=== PATIENT | female | born 1980 | race Caucasian/White ===

== ENCOUNTER 2016-12-15 16:07 | Emergency (ER) | payer OTHER ==
[2016-12-15] MEDS ORDERED: KETOROLAC 60 MG/2 ML VIAL IVP STA (16:47)
[2016-12-15] MEDS ORDERED: DEXAMETHASONE 10 MG/ML VIAL IVP STA (16:47)
[2016-12-15] MEDS ORDERED: diphenhydrAMINE INJ 50 MG/ML VIAL IVP STA (16:47)
[2016-12-15] MEDS ORDERED: PROCHLORPERAZINE 10 MG/2 ML VIAL IVP STA (16:47)
[2016-12-15] MEDS ORDERED: SODIUM CHLORIDE 0.9% 1,000 ML IV ONE ×2 (16:47→16:51)
--- NOTE | 2016-12-15 16:49 | ED Physician Documentation ---
PD HPI HEADACHE - Stated complaint Stated Complaint: MIGRAINE COCHRAN/VISION - Chief complaint Chief Complaint: Neuro - History obtained from History obtained from: Patient - History of Present Illness Timing - onset: Other (36-year-old woman with occasional migraines, she is usually able to manage them at home with Excedrin, but she's had a gradual onset global headache that is throbbing for 2 days associated with nausea but no vomiting, some blurry vision, and photophobia/photophobia. It has not responded to Excedrin. There is no associated fever or neck stiffness.) Review of Systems Constitutional: denies: Fever, Chills Respiratory: denies: Cough GI: reports: Nausea. 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 - Present Medications Home Medications: Ambulatory Orders Medication Instructions Recorded Confirmed Cholestyramine (with Sugar) 0 mg DAILY 12/15/16 12/15/16 [Cholestyramine Packet] Dicyclomine [Bentyl] 1.5 tab DAILY 12/15/16 12/15/16 Prochlorperazine Maleate 10 mg PO Q8HR PRN #20 tablet 12/15/16 [Compazine] - Allergies Allergies/Adverse Reactions: Allergies Allergy/AdvReac Type Severity Reaction Status Date / Time morphine Allergy Severe Respiratory Verified 12/15/16 16:17 sumatriptan [From Imitrex] Allergy Intermediate Edema Verified 12/15/16 16:17 sumatriptan succinate * Allergy Intermediate Edema Verified 12/15/16 16:17 [From Imitrex] - Social History Does the pt smoke?: Yes Smoking Status: Current every day smoker Does the pt drink ETOH?: Yes Does the pt have substance abuse?: No - Immunizations Immunizations are current?: Yes Immunizations: TDAP >10years/unknown PD ED PE NORMAL - Vitals Vital signs reviewed: Yes - General General: Alert and oriented X 3, No acute distress - HEENT HEENT: PERRL, EOMI - Neck Neck: Supple, no meningeal sign, No bony TTP - Neuro Neuro: Alert and oriented X 3, 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 As such I doubt subarachnoid hemorrhage. There are no infectious symptoms such as fever or stiff neck to make me suspect meningitis. No carbon monoxide exposure. On recheck after IV fluids Compazine, Toradol, Benadryl, dexamethasone her headache was resolved. Departure - Departure Disposition: 01 Home, Self Care Clinical Impression: Migraine Condition: Good Record reviewed to determine appropriate education?: Yes Instructions: ED Headache Migraine Prescriptions: Prochlorperazine Maleate [Compazine] 10 mg PO Q8HR PRN #20 tablet PRN Reason: Headache Comments: Call your doctor to arrange a follow up appointment. Make the next available appointment. In the interim return anytime if worse or if new symptoms develop. Forms: Activity restrictions
[2016-12-15] MEDS ORDERED: DEXAMETHASONE 10 MG/ML VIAL ONE (16:51)
[2016-12-15] MEDS ORDERED: diphenhydrAMINE INJ 50 MG/ML VIAL ONE (16:51)
[2016-12-15] MEDS ORDERED: KETOROLAC 30 MG/ML VIAL ONE ×2 (16:51→16:56)
[2016-12-15] MEDS ORDERED: PROCHLORPERAZINE 10 MG/2 ML VIAL ONE (16:51)
[2016-12-15 17:51] VITALS: BP 100/61
== END 2016-12-15 17:51 | disposition home or self-care (01) ==
LOC: ED 16:07
DX: G43.909 Migraine, unspecified, not intractable, without status migrainosus (principal); F17.200 Nicotine dependence, unspecified, uncomplicated
CPT/HCPCS: 96374; 96375; 99283

== ENCOUNTER 2017-10-19 11:32 | Emergency (ER) | payer OTHER ==
[2017-10-19 11:40] VITALS: BP 141/93
--- NOTE | 2017-10-19 12:47 | ED Physician Documentation ---
PD HPI FEMALE - Stated complaint Stated Complaint: FEMALE - Chief complaint Chief Complaint: General - History obtained from History obtained from: Patient - History of Present Illness Timing - onset: How many weeks ago (6) Timing - duration: Weeks (6) Timing - details: Gradual onset, Still present, Constant (she says she has had vaginal bleeding steadily for 6 weeks, using a pad every 2-3 hours for the duration of that time. Feeling weak and tired. Had some OCPs from recent time and so took daily OCP starting about 4 weeks ago (had done that in the past when had irregular periods and it worked to stop the bleeding).) Associated symptoms: Vaginal bleeding. No: Fever, Vaginal discharge, Urinary frequency Contributing factors: Oral contraceptive. No: Exposed to STD Similar symptoms before: No diagnosis (irregular periods int he past but had not lasted as long nor with the cramps she is having.) Recently seen: Not recently seen Review of Systems Constitutional: denies: Fever, Chills GI: reports: Abdominal Pain, Nausea. denies: Vomiting, Diarrhea : reports: Vaginal bleeding, Irregular menses. denies: Dysuria, Frequency, Discharge Skin: denies: Rash, Lesions Neurologic: reports: Generalized weakness. 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 - Present Medications Home Medications: Ambulatory Orders Medication Instructions Recorded Confirmed Cholestyramine (with Sugar) 0 mg DAILY 12/15/16 12/15/16 [Cholestyramine Packet] Dicyclomine [Bentyl] 1.5 tab DAILY 12/15/16 12/15/16 Medroxyprogesterone Acetate 5 mg PO DAILY #6 tablet 10/19/17 [Provera] Naproxen 375 mg PO BID #20 tablet 10/19/17 Oxycodone HCl/Acetaminophen 1 each PO Q6H PRN #20 tablet 10/19/17 [Percocet 5-325 mg Tablet] - Allergies Allergies/Adverse Reactions: Allergies Allergy/AdvReac Type Severity Reaction Status Date / Time morphine Allergy Severe Respiratory Verified 12/15/16 16:17 sumatriptan [From Imitrex] Allergy Intermediate Edema Verified 12/15/16 16:17 sumatriptan succinate * Allergy Intermediate Edema Verified 10/19/17 11:40 [From Imitrex] - Social History Does the pt smoke?: Yes Smoking Status: Current every day smoker Does the pt drink ETOH?: Yes Does the pt have substance abuse?: No - Immunizations Immunizations are current?: Yes Immunizations: TDAP >10years/unknown PD ED PE NORMAL - Vitals Vital signs reviewed: Yes - General General: Alert and oriented X 3, No acute distress, Well developed/nourished - HEENT HEENT: Moist mucous membranes, Pharynx benign - Neck Neck: Supple, no meningeal sign, No adenopathy - Cardiac Cardiac: RRR, No murmur - Respiratory Respiratory: Clear bilaterally - Abdomen Abdomen: Soft, Non tender - Female Female : Deferred - Back Back: No CVA TTP - Derm Derm: Normal color, Warm and dry Results - Vitals Vitals: Oxygen O2 Source Room air - Labs Labs: Laboratory Tests 10/19/17 10/19/17 10/19/17 12:45 13:29 13:29 WBC 7.2 RBC 4.71 Hgb 14.6 Hct 42.8 MCV 90.9 MCH 31.0 MCHC 34.2 RDW 13.2 Plt Count 263 MPV 9.1 Neut # 4.2 Lymph # 2.1 Day # 0.4 Eos # 0.5 Baso # 0.1 Absolute Nucleated RBC 0.00 Nucleated RBC % 0.0 Sodium Potassium Chloride Carbon Dioxide Anion Gap BUN Creatinine Estimated GFR (MDRD) Glucose Calcium Total Bilirubin AST ALT Alkaline Phosphatase Total Protein Albumin Globulin Albumin/Globulin Ratio Lipase TSH 3.28 Blood Type A POSITIVE Blood Type Recheck Antibody Screen NEGATIVE 10/19/17 10/19/17 13:29 14:30 WBC RBC Hgb Hct MCV MCH MCHC RDW Plt Count MPV Neut # Lymph # Day # Eos # Baso # Absolute Nucleated RBC Nucleated RBC % Sodium 135 Potassium 4.0 Chloride 101 Carbon Dioxide 24 Anion Gap 10.0 BUN 12 Creatinine 0.7 Estimated GFR (MDRD) 94 Glucose 93 Calcium 8.9 Total Bilirubin 0.4 AST 21 ALT 21 Alkaline Phosphatase 53 Total Protein 7.4 Albumin 4.2 Globulin 3.2 Albumin/Globulin Ratio 1.3 Lipase 28 TSH Blood Type Blood Type Recheck A POSITIVE Antibody Screen - Rads (name of study) pelvic U/S Radiology: Prelim report reviewed (normal U/S) PD MEDICAL DECISION MAKING - ED course Complexity details: reviewed results, considered differential, d/w patient, d/w oracle application consultant (WELDING MACHINE TENDER - Dr. Camarena - to give follow up referral to them.) Departure - Departure Disposition: 01 Home, Self Care Clinical Impression: Dysfunctional uterine bleeding, Pelvic cramping Condition: Stable Record reviewed to determine appropriate education?: Yes Instructions: ED Bleed Irregular Vaginal Follow-Up: [facility] [Provider Group] Prescriptions: Medroxyprogesterone Acetate [Provera] 5 mg PO DAILY #6 tablet Naproxen 375 mg PO BID #20 tablet Oxycodone HCl/Acetaminophen [Percocet 5-325 mg Tablet] 1 each PO Q6H PRN #20 tablet PRN Reason: Pain Comments: Drink lots of fluids. Naproxen twice daily for the next 7-10 days for inflammation and pain. Add Tylenol or Percocet if needed for pain. Provera hormone daily for 5-6 days to see if that will stop the bleeding. Follow-up with gynecology, they have offices in [place] and [place] and call [facility] for an appointment. They typically get you in within a week or so. Discharge Date/Time: 10/19/17 16:03
[2017-10-19] MEDS ORDERED: SODIUM CHLORIDE 0.9% 1,000 ML IV ONE (13:06)
[2017-10-19] MEDS ORDERED: KETOROLAC 60 MG/2 ML VIAL IVP STA (13:07)
[2017-10-19] MEDS ORDERED: ONDANSETRON 4 MG/2 ML VIAL IVP STA (13:08)
[2017-10-19] MEDS ORDERED: fentaNYL 100 MCG/2 ML VIAL IVP STA (13:12)
[2017-10-19 13:37] LABS: BASOPHILS # (AUTO) 0.1 10^3/uL (0.0-0.1); EOSINOPHILS # (AUTO) 0.5 10^3/uL (0.0-0.7); EOSINOPHILS % (AUTO) 6.9 %; HGB - HEMOGLOBIN 14.6 g/dL (12.0-16.0); LYMPHOCYTES # (AUTO) 2.1 10^3/uL (1.5-3.5); LYMPHOCYTES % (AUTO) 29.2 %; MEAN CORPUSCULAR HGB CONC 34.2 g/dL (32.0-36.0); MEAN CORPUSCULAR VOLUME 90.9 fL (81.0-99.0); MEAN PLATELET VOLUME 9.1 fL (7.9-10.8); MONOCYTES # (AUTO) 0.4 10^3/uL (0.0-1.0); NEUTROPHILS # (AUTO) 4.2 10^3/uL (1.5-6.6); NEUTROPHILS % (AUTO) 57.9 %; PLT - PLATELET COUNT 263 10^3/uL (130-450); RED BLOOD COUNT 4.71 10^6/uL (4.20-5.40); RED CELL DISTRIBUTION WIDTH 13.2 % (12.0-15.0); WHITE BLOOD COUNT 7.2 x10^3/uL (4.8-10.8)
[2017-10-19 13:54] LABS: ALBUMIN 4.2 g/dL (3.2-5.5); ALBUMIN/GLOBULIN RATIO 1.3 (1.0-2.2); BILIRUBIN,TOTAL 0.4 mg/dL (0.2-1.0); CALCIUM 8.9 mg/dL (8.5-10.3); CREATININE 0.7 mg/dL (0.4-1.0); TOTAL PROTEIN 7.4 g/dL (6.7-8.2)
--- NOTE | 2017-10-19 14:56 | Ultrasound Report ---
PELVIC ULTRASOUND: 10/19/2017 CLINICAL INDICATION: Lower abdominal pain, bleeding. COMPARISON: 10/02/2015. TECHNIQUE: Transabdominal pelvic ultrasound performed for global evaluation. Transvaginal pelvic ultrasound performed for detailed evaluation. Real-time scanning performed and static images obtained with Doppler. FINDINGS: The uterus measures 8.2 x 5.9 x 4.5 cm. The endometrium measures 8 mm. No focal myometrial lesion is seen. The right ovary measures 3.2 x 2.6 x 2.0 cm, and demonstrates follicles. The left ovary measures 3.2 x 2.4 x 2.0 cm, and demonstrates follicles. Normal bilateral ovarian flow was seen. No free fluid is present. IMPRESSION: NORMAL PELVIC ULTRASOUND. NO SIGNIFICANT INTERVAL CHANGE. NORMAL BILATERAL OVARIAN FLOW. TD: 10/19/2017 14:54
== END 2017-10-19 16:03 | disposition home or self-care (01) ==
LOC: ED 11:32
DX: N93.8 Other specified abnormal uterine and vaginal bleeding (principal); R10.2 Pelvic and perineal pain; F17.200 Nicotine dependence, unspecified, uncomplicated
CPT/HCPCS: 36415; 76830; 76856; 80053; 83690; 84443; 85025; 86850; 86900; 86901; 93976; 96361; 96374; 96375; 99283; 99284; A9270

== ENCOUNTER 2017-12-09 19:16 | Emergency (ER) | payer OTHER ==
[2017-12-09 19:45] LABS: GLUCOSE, URINE (UA) NEGATIVE (NEGATIVE); KETONES,URINE (UA) 15 mg/dL (NEGATIVE); LEUKOCYTE ESTERASE, URINE NEGATIVE (NEGATIVE); MUDS CUTOFF CONCENTRATIONS CUTOFF CONC BELOW:; NITRITE,URINE NEGATIVE (NEGATIVE); OCCULT BLOOD,URINE LARGE (NEGATIVE); PROTEIN,URINE TRACE mg/dL (NEGATIVE); UROBILINOGEN,URINE 0.2 (NORMAL) E.U./dL (NORMAL)
[2017-12-09 19:53] LABS: BILIRUBIN,URINE NEGATIVE (NEGATIVE); CLARITY,URINE CLEAR (CLEAR); HCG UR QUAL NEGATIVE; ICTOTEST,URINE NEGATIVE
[2017-12-09 19:56] LABS: AMPHETAMINE SCREEN,URINE NEGATIVE (NEGATIVE); BENZODIAZEPINES SCREEN, URINE NEGATIVE (NEGATIVE); COCAINE SCREEN URINE NEGATIVE (NEGATIVE); METHADONE SCREEN, URINE NEGATIVE (NEGATIVE); METHAMPHETAMINES SCREEN, URINE NEGATIVE (NEGATIVE); OPIATE SCREEN, URINE NEGATIVE (NEGATIVE); OXYCODONE SCREEN, URINE POSITIVE (NEGATIVE); PROPOXYPHENE SCREEN, URINE NEGATIVE (NEGATIVE); TRICYCLIC ANTIDEPRESSANT,URINE NEGATIVE (NEGATIVE)
[2017-12-09 20:12] LABS: BACTERIA,URINE Few /HPF (None Seen); SQUAMOUS EPITHELIAL CELL,UR MOD Squamous (<= Few)
[2017-12-09 20:13] LABS: MUCUS,URINE Moderate Strands
--- NOTE | 2017-12-09 20:17 | ED Physician Documentation ---
PD HPI ABD PAIN - Stated complaint Stated Complaint: BACK PX/KIDNEY PX - Chief complaint Chief Complaint: Abd Pain - History obtained from History obtained from: Patient - History of Present Illness Timing - onset: Enter time (06:00), Today Timing - details: Abrupt onset, Constant, Waxing and waning Pain level max: 10 Pain level now: 10 Quality: Pain Location: Other (no abdominal pain: c/o is bilateral mid-level back pain ("my kidneys", per patient)) Improved by: Other (no ameliorating factors) Worsened by: Other (no exacerbating factors) Associated symptoms: Nausea, Dysuria (mild discomfort with urination, no burning ). No: Fever, Vomiting, Diarrhea, Constipation Similar symptoms before: Other (asked if she has had this before, says "not like this". subsequently, she says she was seen at [facility] a few months ago for similar (milder) symptoms, had UA and blood tests and was told suspected diagnosis was kidney stone.) Recently seen: Not recently seen - Additional information Additional information: c/o bilateral mid-level back pain since 6 AM. ibuprofen without relief at home. Review of Systems Constitutional: denies: Fever, Chills, Sweats Cardiac: reports: Reviewed and negative Respiratory: reports: Reviewed and negative GI: reports: Nausea. denies: Abdominal Pain, Vomiting : reports: Dysuria (mild discomfort, but no burning dysuria). 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 - Present Medications Home Medications: Ambulatory Orders Medication Instructions Recorded Confirmed Cholestyramine (with Sugar) 0 mg DAILY 12/15/16 12/15/16 [Cholestyramine Packet] Dicyclomine [Bentyl] 1.5 tab DAILY 12/15/16 12/15/16 Medroxyprogesterone Acetate 5 mg PO DAILY #6 tablet 10/19/17 [Provera] Naproxen 375 mg PO BID #20 tablet 10/19/17 Oxycodone HCl/Acetaminophen 1 each PO Q6H PRN #20 tablet 10/19/17 [Percocet 5-325 mg Tablet] Lorazepam [Ativan] 1 mg PO TID PRN #14 tablet 12/09/17 oxyCODONE/ACET 5/325 [Percocet 5 1 - 2 each PO Q6H PRN #14 tablet 12/09/17 mg/325 mg] - Allergies Allergies/Adverse Reactions: Allergies Allergy/AdvReac Type Severity Reaction Status Date / Time sumatriptan [From Imitrex] Allergy Intermediate Edema Verified 12/09/17 19:21 sumatriptan succinate * Allergy Intermediate Edema Verified 12/09/17 19:21 [From Imitrex] - Social History Does the pt smoke?: Yes Smoking Status: Current every day smoker Does the pt drink ETOH?: Yes Does the pt have substance abuse?: No - Immunizations Immunizations are current?: Yes Immunizations: TDAP >10years/unknown - POLST Patient has POLST: No PD ED PE NORMAL - Vitals Vital signs reviewed: Yes - General General: Alert and oriented X 3, Well developed/nourished, Other (appears to be in waxing and waning ) - Cardiac Cardiac: RRR, No murmur - Respiratory Respiratory: No respiratory distress, Clear bilaterally - Abdomen Abdomen: Normal bowel sounds, Soft, Non tender, Non distended - Back Back: Other (bilateral CVAT ) - Derm Derm: Normal color, Warm and dry, No rash Results - Vitals Vitals: Oxygen O2 Source Room air - Labs Labs: Laboratory Tests 12/09/17 12/09/17 12/09/17 19:30 19:30 19:35 WBC 11.0 H RBC 4.60 Hgb 13.9 Hct 42.2 MCV 91.8 MCH 30.3 MCHC 33.0 RDW 13.2 Plt Count 244 MPV 10.0 Neut # 6.9 H Lymph # 2.7 [place] # 0.7 Eos # 0.6 Baso # 0.1 Absolute Nucleated RBC 0.00 Nucleated RBC % 0.0 Sodium Potassium Chloride Carbon Dioxide Anion Gap BUN Creatinine Estimated GFR (MDRD) Glucose Calcium Total Bilirubin AST ALT Alkaline Phosphatase Total Protein Albumin Globulin Albumin/Globulin Ratio Lipase Urine Color YELLOW Urine Clarity CLEAR Urine pH 6.0 Ur Specific [place] >=1.030 H Urine Protein TRACE Urine Glucose (UA) NEGATIVE Urine Ketones 15 H Urine Occult Blood LARGE H Urine Nitrite NEGATIVE Urine Bilirubin NEGATIVE Urine Urobilinogen 0.2 (NORMAL) Ur Leukocyte Esterase NEGATIVE Urine RBC 11-25 H Urine WBC 0-3 Ur Squamous Epith Cells MOD Squamous H Urine Bacteria Few Urine Mucus Moderate Strands Ur Microscopic Review INDICATED Urine Culture Comments NOT INDICATED Urine HCG, Qual NEGATIVE Urine Opiates Screen NEGATIVE Ur Oxycodone Screen POSITIVE H Urine Methadone Screen NEGATIVE Ur Propoxyphene Screen NEGATIVE Ur Barbiturates Screen NEGATIVE Ur Tricyclics Screen NEGATIVE Ur Phencyclidine Scrn NEGATIVE Ur Amphetamine Screen NEGATIVE U Methamphetamines Scrn NEGATIVE U Benzodiazepines Scrn NEGATIVE Urine Cocaine Screen NEGATIVE U Cannabinoids Screen NEGATIVE 12/09/17 19:35 WBC RBC Hgb Hct MCV MCH MCHC RDW Plt Count MPV Neut # Lymph # [place] # Eos # Baso # Absolute Nucleated RBC Nucleated RBC % Sodium 135 Potassium 3.9 Chloride 102 Carbon Dioxide 22 Anion Gap 11.0 BUN 15 Creatinine 0.9 Estimated GFR (MDRD) 70 L Glucose 113 H Calcium 9.1 Total Bilirubin 0.4 AST 24 ALT 23 Alkaline Phosphatase 49 Total Protein 7.8 Albumin 4.6 Globulin 3.2 Albumin/Globulin Ratio 1.4 Lipase 33 Urine Color Urine Clarity Urine pH Ur Specific [place] Urine Protein Urine Glucose (UA) Urine Ketones Urine Occult Blood Urine Nitrite Urine Bilirubin Urine Urobilinogen Ur Leukocyte Esterase Urine RBC Urine WBC Ur Squamous Epith Cells Urine Bacteria Urine Mucus Ur Microscopic Review Urine Culture Comments Urine HCG, Qual Urine Opiates Screen Ur Oxycodone Screen Urine Methadone Screen Ur Propoxyphene Screen Ur Barbiturates Screen Ur Tricyclics Screen Ur Phencyclidine Scrn Ur Amphetamine Screen U Methamphetamines Scrn U Benzodiazepines Scrn Urine Cocaine Screen U Cannabinoids Screen - Rads (name of study) CT A/P Radiology: Prelim report reviewed, See rad report PD MEDICAL DECISION MAKING - ED course Complexity details: reviewed results, re-evaluated patient, considered differential, d/w patient Departure - Departure Disposition: 01 Home, Self Care Clinical Impression: Back pain Condition: Good Instructions: ED Flank Pain Uncertain Cause, ED Neck Back Pain General Follow-Up: [facility] [Provider Group] Prescriptions: Lorazepam [Ativan] 1 mg PO TID PRN #14 tablet PRN Reason: Anxiety oxyCODONE/ACET 5/325 [Percocet 5 mg/325 mg] 1 - 2 each PO Q6H PRN #14 tablet PRN Reason: Pain Forms: Activity restrictions Discharge Date/Time: 12/10/17 00:11
[2017-12-09] MEDS ORDERED: fentaNYL 100 MCG/2 ML VIAL IVP STA ×2 (20:28→21:11)
[2017-12-09] MEDS ORDERED: KETOROLAC 60 MG/2 ML VIAL IVP STA (20:28)
[2017-12-09 20:43] LABS: BASOPHILS # (AUTO) 0.1 10^3/uL (0.0-0.1); BASOPHILS % (AUTO) 0.8 %; EOSINOPHILS # (AUTO) 0.6 10^3/uL (0.0-0.7); EOSINOPHILS % (AUTO) 5.5 %; HGB - HEMOGLOBIN 13.9 g/dL (12.0-16.0); LYMPHOCYTES # (AUTO) 2.7 10^3/uL (1.5-3.5); LYMPHOCYTES % (AUTO) 24.7 %; MEAN CORPUSCULAR HEMOGLOBIN 30.3 pg (27.0-31.0); MEAN CORPUSCULAR VOLUME 91.8 fL (81.0-99.0); MONOCYTES # (AUTO) 0.7 10^3/uL (0.0-1.0); MONOCYTES % (AUTO) 6.2 %; NEUTROPHILS # (AUTO) 6.9 10^3/uL (1.5-6.6); NEUTROPHILS % (AUTO) 62.8 %; PLT - PLATELET COUNT 244 10^3/uL (130-450); RED CELL DISTRIBUTION WIDTH 13.2 % (12.0-15.0)
[2017-12-09 20:52] LABS: ALBUMIN 4.6 g/dL (3.2-5.5); ALBUMIN/GLOBULIN RATIO 1.4 (1.0-2.2); BILIRUBIN,TOTAL 0.4 mg/dL (0.2-1.0); CALCIUM 9.1 mg/dL (8.5-10.3); CREATININE 0.9 mg/dL (0.4-1.0); TOTAL PROTEIN 7.8 g/dL (6.7-8.2)
--- NOTE | 2017-12-09 21:22 | CT Report ---
EXAM: CT ABDOMEN AND PELVIS (CT KUB) EXAM DATE: 12/09/2017 09:02 PM. CLINICAL HISTORY: Bilateral flank pain. COMPARISONS: 06/13/2015. TECHNIQUE: Routine axial helical CT imaging was performed through the abdomen and pelvis without IV c ontrast. Reconstructions: Coronal and sagittal. In accordance with CT protocol optimization, one or more of the following dose reduction techniques w ere utilized for this exam: automated exposure control, adjustment of mA and/or KV based on patient s ize, or use of iterative reconstructive technique. FINDINGS: Lung Bases: Unremarkable. Right Kidney/Ureter: No stones, hydronephrosis, or hydroureter. No perinephric fat stranding. Left Kidney/Ureter: No stones, hydronephrosis, or hydroureter. No perinephric fat stranding. Other Solid Organs: Noncontrast images of the solid organs are grossly unremarkable. Normal appendix noted. Gallbladder/Bile Ducts: Cholecystectomy. No dilated ducts. Peritoneal Cavity: No free fluid, free air or tea adenopathy. Bowel is grossly unremarkable. Pelvic Organs: No bladder stones or wall thickening. Noncontrast images of the visualized pelvic orga ns are unremarkable. Vasculature: Unremarkable. Other: None. IMPRESSION: Cholecystectomy, otherwise unremarkable noncontrast CT of the abdomen and pelvis. No kidney or ureter al stones or obstruction. [facility] Referring Provider Line: [phone] SITE ID: [id number]
[2017-12-09] MEDS ORDERED: LIDOCAINE VISCOUS 2% 15 ML UDC MM STA (22:01)
[2017-12-09] MEDS ORDERED: MAG HYDROX/AL HYDROX/SIMETH 30 ML UDC PO STA (22:01)
[2017-12-09] MEDS ORDERED: PHENobarb/HYOSCY/ATROPINE/SCOP 5 ML UDC PO STA (22:01)
[2017-12-09] MEDS ORDERED: KETAMINE 500 MG/10 ML VIAL IVP STA (22:39)
[2017-12-09 23:16] VITALS: BP 138/67
[2017-12-09] MEDS ORDERED: LORazepam 0.5 MG TABLET PO STA (23:42)
[2017-12-09] MEDS ORDERED: oxyCODONE/ACET 5/325 Prepack 4 PO STA (23:42)
== END 2017-12-10 00:11 | disposition home or self-care (01) ==
LOC: ED 19:16
DX: M54.9 Dorsalgia, unspecified (principal); F17.200 Nicotine dependence, unspecified, uncomplicated
CPT/HCPCS: 36415; 74176; 80053; 80306; 81001; 81025; 83690; 85025; 96374; 96375; 96376; 99283; 99284; A9270; 81003; 87086

== ENCOUNTER 2018-02-17 22:11 | Emergency (ER) | payer OTHER ==
[2018-02-17 22:20] VITALS: BP 110/68
[2018-02-17] MEDS ORDERED: CYCLOBENZAPRINE 10 MG Prepack 2 PO PRN (22:30)
[2018-02-17] MEDS ORDERED: oxyCODONE/ACET 5/325 Prepack 4 PO STA (22:30)
[2018-02-17] MEDS ORDERED: IBUPROFEN 800 MG TABLET PO STA (22:30)
--- NOTE | 2018-02-17 22:32 | ED Physician Documentation ---
PD HPI BACK PAIN - Stated complaint Stated Complaint: BACK PX - Chief complaint Chief Complaint: Back Pain - History obtained from History obtained from: Patient - History of Present Illness Timing - onset: Other (She is working a new job, today was her fourth day. She has basically they have her sleeping for 8-12 hours at a time without any breaks. His back is locking up on her because of across the shoulders and upper back but also the low back. 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 - Present Medications Home Medications: Ambulatory Orders Medication Instructions Recorded Confirmed Cholestyramine (with Sugar) 0 mg DAILY 12/15/16 12/15/16 [Cholestyramine Packet] Dicyclomine [Bentyl] 1.5 tab DAILY 12/15/16 12/15/16 Medroxyprogesterone Acetate 5 mg PO DAILY #6 tablet 10/19/17 [Provera] Naproxen 375 mg PO BID #20 tablet 10/19/17 Oxycodone HCl/Acetaminophen 1 each PO Q6H PRN #20 tablet 10/19/17 [Percocet 5-325 mg Tablet] Lorazepam [Ativan] 1 mg PO TID PRN #14 tablet 12/09/17 oxyCODONE/ACET 5/325 [Percocet 5 1 - 2 each PO Q6H PRN #14 tablet 12/09/17 mg/325 mg] Cyclobenzaprine [Flexeril] 10 mg PO TID PRN #20 tablet 02/17/18 Ibuprofen [Motrin] 800 mg PO Q8H PRN #30 tablet 02/17/18 Oxycodone HCl/Acetaminophen 1 - 2 tab PO Q4H PRN #10 tablet 02/17/18 [Percocet 5-325 mg Tablet] - Allergies Allergies/Adverse Reactions: Allergies Allergy/AdvReac Type Severity Reaction Status Date / Time sumatriptan [From Imitrex] Allergy Intermediate Edema Verified 02/17/18 22:19 sumatriptan succinate * Allergy Intermediate Edema Verified 02/17/18 22:19 [From Imitrex] - Social History Does the pt smoke?: Yes Smoking Status: Current every day smoker Does the pt drink ETOH?: No Does the pt have substance abuse?: No - Immunizations Immunizations are current?: Yes Immunizations: TDAP >10years/unknown - POLST Patient has POLST: No PD ED PE NORMAL - Vitals Vital signs reviewed: Yes - General General: Alert and oriented X 3, No acute distress - Neck Neck: Supple, no meningeal sign, No bony TTP - Respiratory Respiratory: Clear bilaterally - Abdomen Abdomen: Non tender - Back Back: No spinal TTP, Other (She has muscular tenderness of the parathoracic and paralumbar muscles. She winces with motion. The patient has equal and normal Achilles and patellar reflexes bilaterally. Normal sensation in all areas of the legs. Patient denies saddle anesthesia. Normal strength in flexion- extension at the ankles, knees, and flexion of the hips.) Results - Vitals Vitals: Vital Signs - 24 hr 02/17/18 22:18 Temperature 37.4 C Heart Rate 106 H Respiratory 18 Rate Blood Pressure 110/68 O2 Saturation 98 Oxygen O2 Source Room air PD MEDICAL DECISION MAKING - ED course ED course: This patient has seemingly uncomplicated musculoskeletal back pain. The patient has no "red flags." Specifically denies IV drug use, fevers, incontinence, saddle anesthesia. Spinal epidural abscess was considered, given that the patient has no fever, is not diabetic, has no spinal tenderness, does not use IV drugs, and has no bilateral neurologic symptoms, the diagnosis of spinal epidural abscess is considered exceedingly unlikely. The [place] prescription monitoring program was queried with regard to this patient. No concerning findings were found. - Sepsis Event Vital Signs: Vital Signs - 24 hr 02/17/18 22:18 Temperature 37.4 C Heart Rate 106 H Respiratory 18 Rate Blood Pressure 110/68 O2 Saturation 98 Oxygen O2 Source Room air Departure - Departure Disposition: 01 Home, Self Care Clinical Impression: Back pain Qualifiers: Back pain location: thoracic back pain Chronicity: acute Back pain laterality: bilateral Qualified Code(s): M54.6 - Pain in thoracic spine Condition: Good Record reviewed to determine appropriate education?: Yes Instructions: ED Neck Back Pain General Prescriptions: Cyclobenzaprine [Flexeril] 10 mg PO TID PRN #20 tablet PRN Reason: Pain Ibuprofen [Motrin] 800 mg PO Q8H PRN #30 tablet PRN Reason: PAIN &/OR FEVER Oxycodone HCl/Acetaminophen [Percocet 5-325 mg Tablet] 1 - 2 tab PO Q4H PRN #10 tablet PRN Reason: Pain Comments: Call your doctor to arrange a follow-up appointment, make the next available appointment. In the interim, return anytime if worse or if new symptoms develop. Do not drink or drive while taking narcotic pain medication. Note that many narcotic pain relievers also contain Tylenol/acetaminophen. Please ensure that your total dose of acetaminophen from all sources does not exceed 3 g (3000 mg) per day. You may get constipated while on this medication. Take a stool softener such as Colace twice a day while you are on it. Also add an [id number] laxative such as senna or MiraLAX on any day that you do not have a bowel movement. If you received a narcotic pain medication or sedative while in the emergency department, do not drive for the next 24 hours.
== END 2018-02-17 22:45 | disposition home or self-care (01) ==
LOC: ED 22:11
DX: M54.6 Pain in thoracic spine (principal)
CPT/HCPCS: 99283; A9270

== ENCOUNTER 2018-08-04 20:29 | Emergency (ER) | payer OTHER ==
[2018-08-04] MEDS ORDERED: KETOROLAC 30 MG/ML VIAL IVP STA (20:51)
[2018-08-04] MEDS ORDERED: SODIUM CHLORIDE 0.9% 1,000 ML IV ONE (20:51)
[2018-08-04] MEDS ORDERED: diphenhydrAMINE INJ 50 MG/ML VIAL IVP STA (20:51)
[2018-08-04] MEDS ORDERED: DEXAMETHASONE 10 MG/ML VIAL IVP STA (20:51)
[2018-08-04] MEDS ORDERED: PROCHLORPERAZINE 10 MG/2 ML VIAL IVP STA (20:51)
--- NOTE | 2018-08-04 20:56 | ED Physician Documentation ---
PD HPI HEADACHE - Stated complaint Stated Complaint: COCHRAN/VOMITING - Chief complaint Chief Complaint: Neuro - History obtained from History obtained from: Patient - History of Present Illness Timing - onset: Other (4 days gradual onset global COCHRAN similar to prior migraines but now vomiting too. No fevers. She has chronic H/A, >15 days/mo but not on prophylactic tx, "none have ever worked.") Review of Systems Constitutional: denies: Fever, Chills Respiratory: denies: Dyspnea, Cough GI: reports: Nausea, Vomiting. 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 - Present Medications Home Medications: Ambulatory Orders Medication Instructions Recorded Confirmed Cholestyramine (with Sugar) 0 mg DAILY 12/15/16 12/15/16 [Cholestyramine Packet] Dicyclomine [Bentyl] 1.5 tab DAILY 12/15/16 12/15/16 Medroxyprogesterone Acetate 5 mg PO DAILY #6 tablet 10/19/17 [Provera] Naproxen 375 mg PO BID #20 tablet 10/19/17 Oxycodone HCl/Acetaminophen 1 each PO Q6H PRN #20 tablet 10/19/17 [Percocet 5-325 mg Tablet] Lorazepam [Ativan] 1 mg PO TID PRN #14 tablet 12/09/17 oxyCODONE/ACET 5/325 [Percocet 5 1 - 2 each PO Q6H PRN #14 tablet 12/09/17 mg/325 mg] Cyclobenzaprine [Flexeril] 10 mg PO TID PRN #20 tablet 02/17/18 Ibuprofen [Motrin] 800 mg PO Q8H PRN #30 tablet 02/17/18 Oxycodone HCl/Acetaminophen 1 - 2 tab PO Q4H PRN #10 tablet 02/17/18 [Percocet 5-325 mg Tablet] Prochlorperazine Maleate 10 mg PO Q6HR PRN #20 tablet 08/04/18 [Compazine] - Allergies Allergies/Adverse Reactions: Allergies Allergy/AdvReac Type Severity Reaction Status Date / Time sumatriptan [From Imitrex] Allergy Intermediate Edema Verified 08/04/18 20:42 sumatriptan succinate * Allergy Intermediate Edema Verified 08/04/18 20:42 [From Imitrex] - Social History Does the pt smoke?: Yes Smoking Status: Current every day smoker Does the pt drink ETOH?: No Does the pt have substance abuse?: No - Immunizations Immunizations are current?: Yes Immunizations: TDAP >10years/unknown - POLST Patient has POLST: No PD ED PE NORMAL - Vitals Vital signs reviewed: Yes - General General: Alert and oriented X 3, No acute distress - HEENT HEENT: PERRL, EOMI - Neck Neck: Supple, no meningeal sign, No bony TTP - Neuro Neuro: Alert and oriented X 3, ssis architect 2-12 intact Eye Opening: Spontaneous Motor: Obeys Commands Verbal: Oriented GCS Score: 15 - Psych Psych: Normal mood, Normal affect Results - Vitals Vitals: Vital Signs - 24 hr 08/04/18 20:40 Temperature 36.4 C L Heart Rate 77 Respiratory 16 Rate Blood Pressure 122/75 O2 Saturation 99 Oxygen O2 Source Room air PD MEDICAL DECISION MAKING - ED course ED course: The headache is gradual in onset and similar to prior headaches. As such I doubt subarachnoid hemorrhage. There are no infectious symptoms such as fever or stiff neck to make me suspect meningitis. No carbon monoxide exposure by history. After the administration of IV Compazine, Benadryl, Toradol she was almost completely pain-free. Discussed with her that if she is really having headaches more than 15 days a month she is follow-up with a neurologist again for evaluation for prophylactic therapies. Departure - Departure Disposition: 01 Home, Self Care Clinical Impression: Migraine Condition: Good Record reviewed to determine appropriate education?: Yes Instructions: ED Headache Migraine Prescriptions: Prochlorperazine Maleate [Compazine] 10 mg PO Q6HR PRN #20 tablet PRN Reason: Headache Comments: Call your doctor to arrange a follow-up appointment, make the next available appointment. In the interim, return anytime if worse or if new symptoms develop.
[2018-08-04 22:12] VITALS: BP 118/50
== END 2018-08-04 22:15 | disposition home or self-care (01) ==
LOC: ED 20:29
DX: G43.909 Migraine, unspecified, not intractable, without status migrainosus (principal); F17.200 Nicotine dependence, unspecified, uncomplicated; M32.9 Systemic lupus erythematosus, unspecified
CPT/HCPCS: 96361; 96374; 96375; 99283; J1200

== ENCOUNTER 2018-09-24 19:10 | Emergency (ER) | payer OTHER ==
[2018-09-24 19:32] LABS: BILIRUBIN,URINE NEGATIVE (NEGATIVE); GLUCOSE, URINE (UA) NEGATIVE (NEGATIVE); KETONES,URINE (UA) TRACE mg/dL (NEGATIVE); LEUKOCYTE ESTERASE, URINE NEGATIVE (NEGATIVE); NITRITE,URINE NEGATIVE (NEGATIVE); OCCULT BLOOD,URINE LARGE (NEGATIVE); PROTEIN,URINE NEGATIVE (NEGATIVE); UROBILINOGEN,URINE 0.2 (NORMAL) E.U./dL (NORMAL)
[2018-09-24 19:34] LABS: CLARITY,URINE CLOUDY (CLEAR); HCG UR QUAL NEGATIVE
[2018-09-24 19:40] LABS: BACTERIA,URINE None Seen /HPF (None Seen); RBC,URINE TNTC /HPF (0-5); SQUAMOUS EPITHELIAL CELL,UR RARE Squamous (<= Few)
[2018-09-24 20:08] LABS: BASOPHILS # (AUTO) 0.1 10^3/uL (0.0-0.1); BASOPHILS % (AUTO) 1.1 %; EOSINOPHILS # (AUTO) 0.8 10^3/uL (0.0-0.7); HGB - HEMOGLOBIN 14.6 g/dL (12.0-16.0); LYMPHOCYTES # (AUTO) 2.2 10^3/uL (1.5-3.5); LYMPHOCYTES % (AUTO) 19.9 %; MEAN CORPUSCULAR HEMOGLOBIN 31.6 pg (27.0-31.0); MEAN PLATELET VOLUME 9.3 fL (7.9-10.8); MONOCYTES # (AUTO) 0.6 10^3/uL (0.0-1.0); MONOCYTES % (AUTO) 5.8 %; NEUTROPHILS # (AUTO) 7.2 10^3/uL (1.5-6.6); NEUTROPHILS % (AUTO) 66.2 %; PLT - PLATELET COUNT 242 10^3/uL (130-450); RED BLOOD COUNT 4.63 10^6/uL (4.20-5.40); RED CELL DISTRIBUTION WIDTH 13.6 % (12.0-15.0); WHITE BLOOD COUNT 10.9 x10^3/uL (4.8-10.8)
[2018-09-24] MEDS ORDERED: HYDROmorphone 1 MG/ML CARPUJECT IVP STA ×2 (20:10→20:43)
[2018-09-24] MEDS ORDERED: ONDANSETRON 4 MG/2 ML VIAL IVP STA (20:10)
[2018-09-24 20:19] LABS: ALBUMIN 4.3 g/dL (3.2-5.5); ALBUMIN/GLOBULIN RATIO 1.3 (1.0-2.2); BILIRUBIN,TOTAL 0.4 mg/dL (0.2-1.0); CREATININE 0.8 mg/dL (0.4-1.0); TOTAL PROTEIN 7.6 g/dL (6.7-8.2)
--- NOTE | 2018-09-24 20:24 | ED Physician Documentation ---
PD HPI FEMALE - Stated complaint Stated Complaint: FEMALE - Chief complaint Chief Complaint: General - History obtained from History obtained from: Patient - History of Present Illness Timing - onset: Yesterday Timing - duration: Hours (24) Timing - details: Abrupt onset Pain level max: 9 Pain level max: 9 Associated symptoms: Abdominal pain (lower abd pain), Pelvic pain, Vaginal bleeding (states bleeding 1 pad per hr). No: Fever, Chest/shoulder pain, Dysuria, Urinary frequency Recently seen: Not recently seen Review of Systems Constitutional: denies: Fever, Chills Respiratory: denies: Cough GI: denies: Vomiting, Diarrhea : reports: Other (tubal ligation). 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 - Present Medications Home Medications: Ambulatory Orders Medication Instructions Recorded Confirmed Cholestyramine (with Sugar) 0 mg DAILY 12/15/16 12/15/16 [Cholestyramine Packet] Dicyclomine [Bentyl] 1.5 tab DAILY 12/15/16 12/15/16 Medroxyprogesterone Acetate 5 mg PO DAILY #6 tablet 10/19/17 [Provera] Naproxen 375 mg PO BID #20 tablet 10/19/17 Oxycodone HCl/Acetaminophen 1 each PO Q6H PRN #20 tablet 10/19/17 [Percocet 5-325 mg Tablet] Lorazepam [Ativan] 1 mg PO TID PRN #14 tablet 12/09/17 oxyCODONE/ACET 5/325 [Percocet 5 1 - 2 each PO Q6H PRN #14 tablet 12/09/17 mg/325 mg] Cyclobenzaprine [Flexeril] 10 mg PO TID PRN #20 tablet 02/17/18 Ibuprofen [Motrin] 800 mg PO Q8H PRN #30 tablet 02/17/18 Oxycodone HCl/Acetaminophen 1 - 2 tab PO Q4H PRN #10 tablet 02/17/18 [Percocet 5-325 mg Tablet] Prochlorperazine Maleate 10 mg PO Q6HR PRN #20 tablet 08/04/18 [Compazine] Oxycodone HCl/Acetaminophen 1 - 2 each PO Q6H PRN #14 tablet 09/24/18 [Percocet 5-325 mg Tablet] - Allergies Allergies/Adverse Reactions: Allergies Allergy/AdvReac Type Severity Reaction Status Date / Time sumatriptan [From Imitrex] Allergy Intermediate Edema Verified 09/24/18 19:18 sumatriptan succinate * Allergy Intermediate Edema Verified 08/04/18 20:42 [From Imitrex] - Social History Does the pt smoke?: Yes Smoking Status: Current every day smoker Does the pt drink ETOH?: No Does the pt have substance abuse?: No - Immunizations Immunizations are current?: Yes Immunizations: TDAP >10years/unknown - POLST Patient has POLST: No PD ED PE NORMAL - Vitals Vital signs reviewed: Yes - General General: Alert and oriented X 3, No acute distress, Well developed/nourished - HEENT HEENT: PERRL, Moist mucous membranes - Neck Neck: Supple, no meningeal sign - Cardiac Cardiac: RRR - Respiratory Respiratory: No respiratory distress, Clear bilaterally - Abdomen Abdomen: Soft, Non distended, Other (TTP LLQ without peritoneal signs. 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 No lacerations visible.Mild tenderness on the left ovarian area.) - Back Back: No spinal TTP - Derm Derm: Warm and dry - Extremities Extremities: No deformity - Neuro Neuro: Alert and oriented X 3 - Psych Psych: Normal mood, Normal affect Results - Vitals Vitals: Vital Signs - 24 hr 09/24/18 09/24/18 09/24/18 19:15 19:52 21:59 Temperature 36.7 C 36.3 C L Heart Rate 86 86 77 Respiratory 20 20 16 Rate Blood Pressure 125/98 H 125/98 H 111/74 O2 Saturation 100 100 100 Oxygen O2 Source Room air - Labs Labs: Laboratory Tests 09/24/18 09/24/18 09/24/18 19:19 19:40 19:40 WBC 10.9 H RBC 4.63 Hgb 14.6 Hct 43.0 MCV 93.0 MCH 31.6 H MCHC 34.0 RDW 13.6 Plt Count 242 MPV 9.3 Neut # (Auto) 7.2 H Lymph # (Auto) 2.2 [place] # (Auto) 0.6 Eos # (Auto) 0.8 H Baso # (Auto) 0.1 Absolute Nucleated RBC 0.01 Nucleated RBC % 0.1 Sodium 135 Potassium 3.4 L Chloride 103 Carbon Dioxide 22 Anion Gap 10.0 BUN 15 Creatinine 0.8 Estimated GFR (MDRD) 80 L Glucose 98 Calcium 9.0 Total Bilirubin 0.4 AST 20 ALT 20 Alkaline Phosphatase 55 Total Protein 7.6 Albumin 4.3 Globulin 3.3 Albumin/Globulin Ratio 1.3 Lipase 45 Urine Color DARK YELLOW Urine Clarity CLOUDY Urine pH 6.0 Ur Specific [place] >=1.030 H Urine Protein NEGATIVE Urine Glucose (UA) NEGATIVE Urine Ketones TRACE Urine Occult Blood LARGE H Urine Nitrite NEGATIVE Urine Bilirubin NEGATIVE Urine Urobilinogen 0.2 (NORMAL) Ur Leukocyte Esterase NEGATIVE Urine RBC TNTC H Urine WBC 0-3 Ur Squamous Epith Cells RARE Squamous Urine Bacteria None Seen Ur Microscopic Review INDICATED Urine Culture Comments NOT INDICATED Urine HCG, Qual NEGATIVE - Rads (name of study) pelvic us Radiology: Prelim report reviewed, EMP read contemporaneously, See rad report (Normal endometrial thickness. A few echogenic foci are again noted, could represent calcification. Mild heterogeneity in the endometrium. Flow is noted in the endometrium with the body uncertain etiology an elongated polyp or mass not excluded. Follow-up recommended. Arterial and venous blood flow present in the ovaries bilaterally) PD MEDICAL DECISION MAKING - ED course Complexity details: reviewed results, re-evaluated patient, considered differential, d/w patient, d/w family ED course: 38-year-old female presents to the emergency department with dysfunctional uterine bleeding. No evidence of laceration on evaluation. Discussed case with Dr. Morataya, gynecology on-call who recommended an ultrasound to rule out torsion. Ultrasound does not show any acute abnormalities but patient was counseled to follow-up with a repeat ultrasound for polyp versus mass. Pain well controlled. Patient counseled regarding signs and symptoms for which I believe and urgent re-evaluation would be necessary. Patient with good underst anding of and agreement to plan and is comfortable going home at this time This document was made in part using voice recognition software. While efforts are made to proofread this document, sound alike and grammatical errors may occur. Departure - Departure Disposition: 01 Home, Self Care Clinical Impression: Pelvic pain, Dysfunctional uterine bleeding Condition: Good Instructions: ED Bleed Irregular Vaginal Follow-Up: Yelena Kenyon MD [Provider Admit Priv/Credential] - Within 3 Days Prescriptions: Oxycodone HCl/Acetaminophen [Percocet 5-325 mg Tablet] 1 - 2 each PO Q6H PRN #14 tablet PRN Reason: pain Comments: The cause of your symptoms is unclear today. Follow-up with your doctor for further evaluation and care. You should be reevaluated by gynecology within the next 2 days. You also need a repeat ultrasound once the symptoms have resolved. Return if you worsen. Do not drink alcohol or drive while on narcotic pain medicine. Note that many narcotic pain relievers also contain tylenol/acetaminophen. Please ensure that your total dose of acetaminophen from all sources does not exceed 3 grams (3000mg) per day. You may constipated on this medication, take a stool softener such as "Colace" twice a day while you are on it. Also recommend a zmzd-gat-gafauhr laxative such as senna or MiraLAX any day that you do not have a bowel movement. If you received narcotic pain medication in the emergency department, do not drive or operate machinery for the next 24 hours. Discharge Date/Time: 09/24/18 22:40
[2018-09-24 22:00] VITALS: BP 111/74
--- NOTE | 2018-09-24 22:08 | Ultrasound Report ---
Reason: pelvic pain, L Procedure Date: 09/24/2018 Accession Number: [id number] / [id number] Procedure: US - Pelvic w/Transvag+Doppler Comp CPT Code: FULL RESULT: EXAM: PELVIC ULTRASOUND WITH DOPPLERS CLINICAL HISTORY: Left pelvic pain. COMPARISON: PEL NON OB W/TV DOP LTD 10/19/2017 1:25 PM ABDOMEN/PELVIS W/O 12/09/2017 8:47 PM TECHNIQUE: Realtime transabdominal imaging performed to identify the uterus and adnexa and as an overview of other pelvic structures, followed by transvaginal imaging for better assessment of the endometrium and adnexa, with static image documentation. Color flow imaging and Doppler spectral analysis was performed to evaluate blood flow to the ovaries given pelvic pain and clinical concern for ovarian torsion. FINDINGS: Uterus: 9 x 4.9 x 6.2 cm, volume 152.9 cc. Anteverted position. Normal overall size and echotexture. Masses: None. Endometrium: 4 mm. Normal endometrial thickness. A few echogenic foci are again noted, could represent calcification. Mild heterogeneity in the endometrium. Flow is noted in the endometrium at the body, uncertain etiology, and elongated polyp of mass not excluded. Follow up recommended. Cervix: Unremarkable. Right Ovary: 2.7 x 1.9 x 3.2 cm, volume 8.3 cc. Normal echotexture. Arterial and venous blood flow are present. Adnexa are unremarkable. Left Ovary: 3.1 x 2.1 x 2.8 cm, volume 9.4 cc. Normal echotexture. Arterial and venous blood flow are present. Adnexa are unremarkable. Free Fluid: None. Other: Suboptimal visualization due to patient's body habitus. IMPRESSION: 1. Normal endometrial thickness. A few echogenic foci are again noted, could represent calcification. Mild heterogeneity in the endometrium. Flow is noted in the endometrium at the body, uncertain etiology, and elongated polyp of mass not excluded. Follow up recommended. 2. Arterial and venous blood flow are present to the ovaries bilaterally. RADIA
[2018-09-24] MEDS ORDERED: KETOROLAC 30 MG/ML VIAL IVP STA (22:36)
[2018-09-24] MEDS ORDERED: oxyCODONE 5 MG TABLET PO STA (22:36)
== END 2018-09-24 22:40 | disposition home or self-care (01) ==
LOC: ED 19:10
DX: N93.8 Other specified abnormal uterine and vaginal bleeding (principal); R10.2 Pelvic and perineal pain; M32.9 Systemic lupus erythematosus, unspecified; F17.200 Nicotine dependence, unspecified, uncomplicated
CPT/HCPCS: 36415; 76830; 76856; 80053; 81001; 81025; 83690; 85025; 93975; 96374; 96375; 96376; 99283; 99284; A9270; J1170; 81003; 87086

== ENCOUNTER 2018-09-26 11:32 | Emergency (ER) | payer OTHER ==
[2018-09-26] MEDS ORDERED: HYDROmorphone 1 MG/ML CARPUJECT IVP STA ×2 (11:49→12:51)
[2018-09-26] MEDS ORDERED: ONDANSETRON 4 MG/2 ML VIAL IVP STA (11:49)
[2018-09-26] MEDS ORDERED: SODIUM CHLORIDE 0.9% 1,000 ML IV ONE (12:15)
--- NOTE | 2018-09-26 12:18 | ED Physician Documentation ---
History of Present Illness - Stated complaint Stated Complaint: SYNCOPE/FEMALE - Chief complaint Chief Complaint: Abd Pain - History obtained from History obtained from: Patient - History of Present Illness Timing: How many days ago (4) Pain level max: 9 Pain level now: 9 - Additonal information Additional information: 38-year-old female presents to the emergency department with continued abdominal pain since being evaluated here 2 days ago for same. She states she has increased vaginal bleeding is going through a pad every 30 minutes. States she feels lightheaded and dizzy. States that this began after a session of rough intercourse. Nothing makes it worse. Percocet is helping Review of Systems Ten Systems: 10 systems reviewed and negative Constitutional: denies: Fever, Chills Ears: denies: Ear pain Nose: denies: Rhinorrhea / runny nose, Congestion Throat: denies: Sore throat Cardiac: denies: Chest pain / pressure Respiratory: denies: Cough GI: reports: Nausea. 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 - Present Medications Home Medications: Ambulatory Orders Medication Instructions Recorded Confirmed Ondansetron Odt [Zofran] 4 mg TL Q6H PRN #10 tablet 09/26/18 Oxycodone HCl/Acetaminophen 1 - 2 each PO Q6H PRN #14 tablet 09/26/18 [Percocet 5-325 mg Tablet] - Allergies Allergies/Adverse Reactions: Allergies Allergy/AdvReac Type Severity Reaction Status Date / Time sumatriptan [From Imitrex] Allergy Intermediate Edema Verified 09/26/18 11:42 sumatriptan succinate * Allergy Intermediate Edema Verified 09/26/18 11:42 [From Imitrex] - Social History Does the pt smoke?: Yes Smoking Status: Current every day smoker Does the pt drink ETOH?: No Does the pt have substance abuse?: No - Immunizations Immunizations are current?: Yes Immunizations: TDAP >10years/unknown - POLST Patient has POLST: No PD ED PE NORMAL - Vitals Vital signs reviewed: Yes - General General: Alert and oriented X 3, No acute distress, Well developed/nourished - HEENT HEENT: PERRL, Moist mucous membranes - Neck Neck: Supple, no meningeal sign - Cardiac Cardiac: RRR, Strong equal pulses - Respiratory Respiratory: No respiratory distress, Clear bilaterally - Abdomen Abdomen: Soft, Non distended, Other (Lower abdominal tender palpation. No peritoneal signs) - Back Back: No spinal TTP - Derm Derm: Warm and dry - Extremities Extremities: No deformity, No edema - Neuro Neuro: Alert and oriented X 3 - Psych Psych: Normal mood, Normal affect Results - Vitals Vitals: Vital Signs - 24 hr 09/26/18 09/26/18 09/26/18 11:39 12:57 14:58 Temperature 36.5 C Heart Rate 87 81 72 Respiratory 18 16 16 Rate Blood Pressure 123/73 113/67 102/56 L O2 Saturation 98 98 98 Oxygen O2 Source Room air - Labs Labs: Laboratory Tests 09/26/18 09/26/18 09/26/18 12:15 12:15 13:11 WBC 8.2 RBC 4.20 Hgb 13.2 Hct 38.9 MCV 92.7 MCH 31.5 H MCHC 34.0 RDW 13.4 Plt Count 218 MPV 9.7 Neut # (Auto) 5.9 Lymph # (Auto) 1.1 L [place] # (Auto) 0.6 Eos # (Auto) 0.6 Baso # (Auto) 0.1 Absolute Nucleated RBC 0.00 Nucleated RBC % 0.0 Sodium 137 Potassium 3.8 Chloride 103 Carbon Dioxide 25 Anion Gap 9.0 BUN 9 Creatinine 0.6 Estimated GFR (MDRD) 111 Glucose 100 Calcium 8.6 Total Bilirubin 0.5 AST 18 ALT 17 Alkaline Phosphatase 49 Total Protein 6.9 Albumin 3.7 Globulin 3.2 Albumin/Globulin Ratio 1.2 Lipase 35 Urine Color RED/BLOODY Urine Clarity CLOUDY Urine pH 7.0 Ur Specific [place] 1.010 Urine Protein Urine Glucose (UA) NEGATIVE Urine Ketones NEGATIVE Urine Occult Blood LARGE H Urine Nitrite NEGATIVE Urine Bilirubin NEGATIVE Urine Urobilinogen 0.2 (NORMAL) Ur Leukocyte Esterase Urine RBC TNTC H Urine WBC 0-3 Ur Squamous Epith Cells RARE Squamous Urine Bacteria Rare Ur Microscopic Review INDICATED Urine Culture Comments NOT INDICATED - Rads (name of study) CT abdomen pelvis Radiology: Prelim report reviewed, EMP read contemporaneously, See rad report (Small amount of free fluid in the pelvis, likely physiologic. No acute abnormalities) PD MEDICAL DECISION MAKING - ED course Complexity details: reviewed old records, reviewed results, re-evaluated patient, considered differential, d/w patient ED course: 38-year-old female with what appears to be dysfunctional uterine bleeding and dysmenorrhea. Upon further history she states that this happens to her every month and that the bleeding has become worse. She states she has tried hormones in the past as well as control and this does not help. I contacted [facility] who recommends following up in their office. They did not recommend starting any hormonal therapy at this point as her H&H have not significantly changed. Patient is well-appearing, nontoxic. Pain controlled. Patient counseled regarding signs and symptoms for which I believe and urgent re- evaluation would be necessary. Patient with good understanding of and agreement to plan and is comfortable going home at this time This document was made in part using voice recognition software. While efforts are made to proofread this document, sound alike and grammatical errors may occur. Departure - Departure Disposition: 01 Home, Self Care Clinical Impression: Dysfunctional uterine bleeding, Dysmenorrhea Condition: Good Instructions: ED Bleed Irregular Vaginal, ED Cramping Menstrual Follow-Up: [facility] [Provider Group] Prescriptions: Ondansetron Odt [Zofran] 4 mg TL Q6H PRN #10 tablet PRN Reason: Nausea / Vomiting Oxycodone HCl/Acetaminophen [Percocet 5-325 mg Tablet] 1 - 2 each PO Q6H PRN #14 tablet PRN Reason: pain Comments: [place] [facility] [place] [facility] [place] They do not recommend any hormone therapy at this time. They recommend following up in their clinic. They do need a referral from your PCM. Call your PCM today or tomorrow for your referral. Discharge Date/Time: 09/26/18 15:28
[2018-09-26] MEDS ORDERED: IOVERSOL 320 100 ML VIAL IVP ONE ×2 (12:38→13:34)
[2018-09-26 12:42] LABS: BASOPHILS # (AUTO) 0.1 10^3/uL (0.0-0.1); BASOPHILS % (AUTO) 0.6 %; EOSINOPHILS # (AUTO) 0.6 10^3/uL (0.0-0.7); EOSINOPHILS % (AUTO) 6.9 %; HGB - HEMOGLOBIN 13.2 g/dL (12.0-16.0); LYMPHOCYTES # (AUTO) 1.1 10^3/uL (1.5-3.5); LYMPHOCYTES % (AUTO) 13.1 %; MEAN CORPUSCULAR HEMOGLOBIN 31.5 pg (27.0-31.0); MEAN CORPUSCULAR VOLUME 92.7 fL (81.0-99.0); MEAN PLATELET VOLUME 9.7 fL (7.9-10.8); MONOCYTES # (AUTO) 0.6 10^3/uL (0.0-1.0); NEUTROPHILS # (AUTO) 5.9 10^3/uL (1.5-6.6); NEUTROPHILS % (AUTO) 72.4 %; PLT - PLATELET COUNT 218 10^3/uL (130-450); RED CELL DISTRIBUTION WIDTH 13.4 % (12.0-15.0); WHITE BLOOD COUNT 8.2 x10^3/uL (4.8-10.8)
[2018-09-26 12:49] LABS: CALCIUM 8.6 mg/dL (8.5-10.3)
[2018-09-26 13:41] LABS: BILIRUBIN,URINE NEGATIVE (NEGATIVE); GLUCOSE, URINE (UA) NEGATIVE (NEGATIVE); KETONES,URINE (UA) NEGATIVE (NEGATIVE); NITRITE,URINE NEGATIVE (NEGATIVE); OCCULT BLOOD,URINE LARGE (NEGATIVE); UROBILINOGEN,URINE 0.2 (NORMAL) E.U./dL (NORMAL)
[2018-09-26 13:45] LABS: CLARITY,URINE CLOUDY (CLEAR)
[2018-09-26 13:46] LABS: RBC,URINE TNTC /HPF (0-5); SQUAMOUS EPITHELIAL CELL,UR RARE Squamous (<= Few)
[2018-09-26 13:47] LABS: BACTERIA,URINE Rare /HPF (None Seen)
--- NOTE | 2018-09-26 13:57 | CT Report ---
Reason: lower abd pain x 4 days. Procedure Date: 09/26/2018 Accession Number: [id number] / [id number] Procedure: CT - Abdomen/Pelvis W CPT Code: FULL RESULT: EXAM: CT ABDOMEN AND PELVIS EXAM DATE: 09/26/2018 01:32 PM. CLINICAL HISTORY: Lower abd pain x 4 days. COMPARISONS: ABDOMEN/PELVIS W/O 12/09/2017 8:47 PM. TECHNIQUE: Routine helical CT imaging was performed through the abdomen and pelvis. IV contrast: 100 cc of Optiray 320. Enteric contrast: No. Reconstructions: Coronal and sagittal. In accordance with CT protocol optimization, one or more of the following dose reduction techniques were utilized for this exam: automated exposure control, adjustment of mA and/or KV based on patient size, or use of iterative reconstructive technique. FINDINGS: Lung Bases: The lung bases are without evidence of a mass or infiltrate. Solid organs: The liver is without evidence of an enhancing mass. There are postoperative changes consistent with cholecystectomy. The spleen, pancreas, and adrenal glands are normal in appearance. The kidneys are without evidence of mass or hydronephrosis. There is no hydroureter. Peritoneal Cavity/Bowel: The appendix is normal in appearance. There are no dilated loops of bowel to suggest the presence of an obstruction. There is no evidence of diverticulosis or diverticulitis. Pelvic Organs: No mass or cyst is seen within the pelvis. A small amount of free fluid is seen within the pelvis that is most likely physiologic. Vasculature: There is no evidence of an abdominal aortic aneurysm. Bones: No focal bony lesion are identified. IMPRESSION: Postoperative changes consistent with a cholecystectomy. Normal appearance of the appendix. Small amount of free fluid in the pelvis that is most likely physiologic. RADIA
[2018-09-26 15:00] VITALS: BP 102/56
[2018-09-26] MEDS ORDERED: KETOROLAC 30 MG/ML VIAL IVP STA (15:08)
[2018-09-26 15:42] LABS: ALBUMIN 3.7 g/dL (3.2-5.5); ALBUMIN/GLOBULIN RATIO 1.2 (1.0-2.2); BILIRUBIN,TOTAL 0.5 mg/dL (0.2-1.0); CREATININE 0.6 mg/dL (0.4-1.0); TOTAL PROTEIN 6.9 g/dL (6.7-8.2)
== END 2018-09-26 15:28 | disposition home or self-care (01) ==
LOC: ED 11:32
DX: N93.8 Other specified abnormal uterine and vaginal bleeding (principal); N94.6 Dysmenorrhea, unspecified; M32.9 Systemic lupus erythematosus, unspecified; F17.200 Nicotine dependence, unspecified, uncomplicated
CPT/HCPCS: 36415; 74177; 80053; 81001; 83690; 85025; 96374; 96375; 96376; 99283; 99284; J1170; Q9967; 81003; 87086

== ENCOUNTER 2018-10-03 15:36 | Outpatient (CLI) | payer OTHER ==
[2018-10-03 16:16] LABS: BASOPHILS % (AUTO) 0.8 %; EOSINOPHILS # (AUTO) 0.2 10^3/uL (0.0-0.7); EOSINOPHILS % (AUTO) 3.3 %; HGB - HEMOGLOBIN 13.8 g/dL (12.0-16.0); LYMPHOCYTES # (AUTO) 1.8 10^3/uL (1.5-3.5); LYMPHOCYTES % (AUTO) 36.1 %; MEAN CORPUSCULAR HEMOGLOBIN 30.8 pg (27.0-31.0); MEAN CORPUSCULAR HGB CONC 33.5 g/dL (32.0-36.0); MEAN CORPUSCULAR VOLUME 92.1 fL (81.0-99.0); MEAN PLATELET VOLUME 8.5 fL (7.9-10.8); MONOCYTES # (AUTO) 0.4 10^3/uL (0.0-1.0); NEUTROPHILS # (AUTO) 2.7 10^3/uL (1.5-6.6); NEUTROPHILS % (AUTO) 52.8 %; PLT - PLATELET COUNT 297 10^3/uL (130-450); RED BLOOD COUNT 4.48 10^6/uL (4.20-5.40); RED CELL DISTRIBUTION WIDTH 13.6 % (12.0-15.0)
[2018-10-03 16:36] LABS: ALBUMIN 4.4 g/dL (3.2-5.5); ALBUMIN/GLOBULIN RATIO 1.2 (1.0-2.2); BILIRUBIN,TOTAL 0.6 mg/dL (0.2-1.0); CALCIUM 9.3 mg/dL (8.5-10.3); CREATININE 0.6 mg/dL (0.4-1.0); GLUCOSE, URINE (UA) NEGATIVE (NEGATIVE); KETONES,URINE (UA) 15 mg/dL (NEGATIVE); LEUKOCYTE ESTERASE, URINE NEGATIVE (NEGATIVE); NITRITE,URINE NEGATIVE (NEGATIVE); OCCULT BLOOD,URINE LARGE (NEGATIVE); PROTEIN,URINE NEGATIVE (NEGATIVE); TOTAL PROTEIN 8.1 g/dL (6.7-8.2); UROBILINOGEN,URINE 1 (NORMAL) E.U./dL (NORMAL)
[2018-10-03 16:38] LABS: INR 1.1 (0.8-1.2)
[2018-10-03 16:41] LABS: BILIRUBIN,URINE SMALL (NEGATIVE); CLARITY,URINE HAZY (CLEAR); ICTOTEST,URINE POSITIVE
[2018-10-03 16:45] LABS: PARTIAL THROMBOPLASTIN TIME 25.2 secs (24.9-33.3)
== END 2018-10-03 15:37 | disposition home or self-care (01) ==
LOC: LAB 15:36
PROVIDERS: ATTEND Obstetrics & Gynecology
DX: Z01.812 Encounter for preprocedural laboratory examination (principal); R10.2 Pelvic and perineal pain; N93.9 Abnormal uterine and vaginal bleeding, unspecified
CPT/HCPCS: 36415; 80053; 81003; 85025; 85610; 85730; 86850; 86900; 86901

== ENCOUNTER 2018-10-05 11:31 | Inpatient (IN) | payer OTHER ==
[~2018-10-05 11:31] MED LIST: BUPIVACAINE 0.25%-EPI 1:200000 PF 30 ML VIAL ONE; LIDOCAINE 1% 50 ML MDV ONE
[2018-10-05] MEDS ORDERED: ceFAZolin 2 GM/50 ML 2 GM/50 ML BAG IV ONE (11:42)
[2018-10-05] MEDS ORDERED: LACTATED RINGERS 1,000 ML IV ONE ×2 (11:58→15:20)
--- NOTE | 2018-10-05 12:05 | ANESTHESIA ---
Pre-Anesthesia VS, & Labs - Diagnosis pelvic pain, abnormal uterine bleeding - Procedure laparoscopic assisted vaginal hysterectomy Vital Signs: Temp Pulse Resp BP Pulse Ox 36.4 C L 60 18 111/62 99 10/05/18 11:50 10/05/18 11:50 10/05/18 11:50 10/05/18 11:50 10/05/18 11:50 Height 5 ft 4 in Weight (kg) 86.18 kg Body Mass Index 32.5 - NPO >8 hours - Is Patient ?: Waiver signed Home Medications and Allergies Home Medications: Ambulatory Orders Cholestyramine [Questran] 4 gm PO BID 10/04/18 Cholestyramine [Questran] 4 gm PO BID 10/04/18 Allergies/Adverse Reactions: Allergies Allergy/AdvReac Type Severity Reaction Status Date / Time sumatriptan [From Imitrex] Allergy Intermediate Edema Verified 10/04/18 09:19 sumatriptan succinate * Allergy Intermediate Edema Verified 10/04/18 09:19 [From Imitrex] morphine AdvReac Anxiety Verified 10/04/18 09:20 Anes History & Medical History - Anesthetic History Anesthesia Complications: reports: Other-see comment (she has woke up with every surgery) Family history of Anesthesia Complications: Denies Family history of Malignant Hyperthermia: Denies - Medical History Cardiovascular: reports: None Pulmonary: reports: None Gastrointestinal: reports: Crohn's disease, Other Urinary: reports: Kidney stones Neuro: reports: Migraines Musculoskeletal: reports: Osteoarthritis Endocrine/Autoimmune: reports: Systemic lupus erythematosus Blood Disorders: reports: None Skin: reports: None Smoking Status: Current every day smoker - Surgical History General: Cholecystectomy Gynecologic: Tubal ligation Orthopedic: ACL reconstruction Exam General: Alert, Oriented x3, Cooperative, No acute distress Dental: Partials Upper Mouth Openin Fingerbreadth Neck Mobility: Normal Mallampati classification: II Thyromental Distance: greater than 6 cm Respiratory: Lungs clear, Normal breath sounds, No respiratory distress, No accessory muscle use Cardiovascular: Regular rate, Normal S1, Normal S2, No murmurs Mental/Cognitive Status: Alert/Oriented X3, Normal for patient Cognitive Status: Within normal limits Plan Anesthesia Type: General Consent for Procedure(s) Verified and Reviewed: No Code Status: Attempt Resuscitation ASA classification: 2-Mild systemic disease Is this case an emergency?: No
[2018-10-05] MEDS ORDERED: fentaNYL 100 MCG/2 ML VIAL IVP ONE (13:00)
[2018-10-05] MEDS ORDERED: DEXAMETHASONE 4 MG/ML VIAL IVP ONE (13:00)
[2018-10-05] MEDS ORDERED: ROCURONIUM 50 MG/5 ML VIAL IVP ONE (13:00)
[2018-10-05] MEDS ORDERED: MIDAZOLAM 2 MG/2 ML VIAL IVP ONE (13:00)
[2018-10-05] MEDS ORDERED: GLYCOPYRROLATE 1 MG/5 ML VIAL IVP ONE (13:00)
[2018-10-05] MEDS ORDERED: ONDANSETRON 4 MG/2 ML VIAL IVP ONE (13:00)
[2018-10-05] MEDS ORDERED: PHENYLEPHRINE 50 MG/5 ML VIAL IV ONE (13:00)
[2018-10-05] MEDS ORDERED: HYDROmorphone 1 MG/ML CARPUJECT IVP ONE (13:00)
[2018-10-05] MEDS ORDERED: KETOROLAC 30 MG/ML VIAL IVP ONE (13:00)
[2018-10-05] MEDS ORDERED: NEOSTIGMINE 1 MG/1 ML 10 ML MDV IVP ONE (13:00)
[2018-10-05] MEDS ORDERED: LIDOCAINE-MPF 2% 5 ML VIAL IM ONE (13:00)
[2018-10-05] MEDS ORDERED: ACETAMINOPHEN 1,000 MG/100 ML 100 ML IV ONE (13:00)
[2018-10-05] MEDS ORDERED: ePHEDrine 50 MG/ML VIAL IVP ONE (13:00)
[2018-10-05] MEDS ORDERED: BUPIVACAINE 0.25%-EPI 1:200000 PF 30 ML VIAL SUBQ ONE ×2 (13:18)
[2018-10-05] MEDS ORDERED: LIDOCAINE MPF 1%-EPI 1:200000 30 ML VIAL ONE (13:27)
[2018-10-05] MEDS ORDERED: LIDOCAINE 1%-EPI 1:100000 20 ML MDV SUBQ ONE ×2 (14:00)
[2018-10-05] MEDS ORDERED: ONDANSETRON 4 MG/2 ML VIAL IVP PRN (15:21)
[2018-10-05] MEDS ORDERED: SIMETHICONE CHEW 80 MG TABLET PO PRN (15:21)
[2018-10-05] MEDS ORDERED: oxyCODONE 5 MG TABLET PO PRN (15:22)
[2018-10-05] MEDS ORDERED: HYDROmorphone 0.5 MG/0.5 ML SYRINGE IVP PRN (15:23)
[2018-10-05] MEDS: HYDROmorphone 1 MG/ML CARPUJECT ONE ×4 (15:25→16:04)
[2018-10-05] MEDS ORDERED: HYDROmorphone 1 MG/ML CARPUJECT ONE (15:32)
--- NOTE | 2018-10-05 15:32 | OPERATIVE REPORT ---
Operative Report - General Admit Date: 10/05/18 Procedure Date: 10/05/18 Planned Procedure: Laparoscopic-assisted vaginal hysterectomy with bilateral salpingectomies Pre-Op Diagnosis: Chronic pelvic pain, Abnormal uterine bleeding Procedure Performed: Laparoscopic-assisted vaginal hysterectomy with bilateral salpingectomies, lysis of adhesions Post Op Diagnosis: KARINA - Procedure Note Primary Surgeon: Dr. Yelena Kenyon Secondary Surgeon: Dr. Satnam Serrato Anesthesia Provider: JOSHUA Arriola Anesthesia Technique: General ET tube, Local Pathology: 1. Peritoneal tissue mass (unattached in pelvis, anterior to bladder) 2. Uterus, cervix, bilateral fallopian tubes IV Fluids (mL): 900 Estimated Blood Loss (mL): 75 Urine Output (mL): 100 Indications: The patient is a 38-year-old 2 para 2 female here for hysterectomy for definitive surgical management of acute worsening of chronic menorrhagia, dysmenorrhea, and pelvic pain. Pelvic ultrasound and CT were normal. She was seen in the emergency room on and 26 September for these symptoms with bleeding described as soaking a pad every 30 minutes as well as passage of fist-sized clots. She also occasionally leaks or bleeds onto her clothes. Menorrhagia has been a worsening problem for her over the last several years, and she has severe dysmenorrhea at the time of her bleeding. However recently she has had pain even despite bleeding. She has no dyspareunia however. Her pain is located throughout her pelvis, and does not seem associated with bowel movements or any other bladder symptoms. She does not routinely take narcotic pain medications but has been prescribed Percocet recently after her emergency room visits, and her pain has required 1 Percocet and 1 oxycodone 5 mg every 4 hours for the past 11 days. She is status post tubal ligation and has completed her childbearing. Past trials of hormonal control have caused weight gain and mood concerns. We reviewed management options, including medical and surgical. The patient and her spouse strongly desired to have a hysterectomy for definitive surgical management and avoidance of implants. Of note, she also is a tobacco user, and given her age over 38 years, she is at higher risk for blood clots and stroke. She has been on a control pill taper for the last week in order to control her bleeding prior to surger. This was effective for bleeding, but not for pain management. Though she has never been diagnosed with anemia or required a blood transfusion, her recent episode of bleeding did result in a notable decrease in her hematocrit from 43 to 38.9to 36.7% before start of control pills. The risks, limitations, benefits, alternatives, and expectations of surgery were discussed, and the consent was reviewed and signed prior to the date of surgery. Findings: Exam under anesthesia: The uterus was anteverted and approximately 8 weeks in size. No adnexal masses were palpable. The uterus was felt to be mobile with some mild descent on bimanual exam. A mild rectocele and cystocele were noted. Operative findings: Thin adhesions were present from omentum to the proximal left fallopian tube remnant, the left ovary, and the posterior lower uterine segment. There was a moderate omental adhesion to the posterior umbilical area, at the site of her prior surgeries. The ovaries were normal in appearance bilaterally. The fallopian tubes appeared status post bilateral ligation, and the entire residual distal fallopian tubes were excised and sent with the uterus specimen. There was no evidence of endometriosis. There was an approximately 1.5 x 1 cm free-floating tissue mass noted in the pelvis just anterior to the bladder. This was removed and sent for specimen. At the completion of the hysterectomy, the ureters were visualized easily bilaterally and noted to peristalse bilaterally. There tracts appeared free of the surgical area. The tip of the appendix was visualized and appeared normal. The remainder of the appendix was not well visualized. The liver edge was seen and appeared consistent with mild fatty liver. The uterus was bivalved on the surgical table and appeared to have a normal endometrial cavity. No fibroids were noted. Complications: None - Other Other Information/Narrative: Procedure: The patient was taken to the operating room, where general endotracheal anesthesia was administered without difficulty. She was then positioned with her lower extremities in yellow-fin stirrups. Exam under anesthesia was then performed with the findings as noted above. Perineum, vagina, and abdomen were then prepped and draped in sterile fashion, and a parker catheter was placed. Time out was then performed. Attention was first turned to placement of a uterine manipulator. A sterile bivalve speculum was inserted, and the cervix grasped with a single-toothed tenaculum. The cervix was then dilated until a HUMI uterine manipulator could be placed and balloon inflated. The tenaculum and speculum were then removed. Attention was then turned to the laparoscopy. 0.25% Marcaine w/epi, was injected infraumbilically, then a 7-mm vertical skin incision made. A Verrees needle was then inserted through the anterior layers of the abdominal wall with saline drop test suggesting intraperitoneal placement. Carbon dioxide gas insufflation was then performed with appropriate opening pressures noted. Once 2 L of gas was instilled, a 0-degree, 5 mm laparoscope was inserted into a 5 mm trocar and passed through the anterior layers of the abdominal wall using Optiview technique. The abdomen was visualized, then 2 additional ports placed at the right and left lower quadrants, first instilling local anesthetic then placing 5 mm ports. The patient was placed into Trendelenberg and bowel swept out of the cul-de-sac. The omental adhesions to the left ovary and proximal tube were cross-clamped, cauterized, and cut using the Plasmakinetic. The medial end of the ligated left distal fallopian tube was grasped and pulled so the mesosalpinx could be cross- clamped, cauterized, and cut using the PlasmaKinetic. This incision was then extended laterally across the mesosalpinx until the tubo-ovarian pedicle was reached, cauterized, and cut. The left round ligament was then cross-clamped, cauterized, and cut, then the anterior leaf of the broad ligament undermined, cauterized, and cut starting the bladder flap dissection on the left. The left utero-ovarian pedicle was then cross-clamped, cauterized, and cut, then this incision extended into the peritoneum inferiorly. The left uterine vessels were then skeletonized, cross-clamped, cauterized, and cut. Attention was then turned to the right side, where the dissection was completed in similar fashion. The bladder flap was extended across the midline, completely dissecting the bl adder inferiorly. Any bleeding was controlled with cautery. The adhesion at the posterior lower uterine segment was cauterized and cut. The trocars were left in situ as well as the majority of the gas while attention was turned to the vaginal portion of the case. The lower extremities were elevated to high lithotomy, and the uterine manipulator was removed and a sterile weighted speculum placed. The cervix was grasped with a double-toothed tenaculum, then 1% Lidocaine with epinephrine was injected circumferentially for hemostasis. A circumferential incision was then made with cauterization. The posterior cul-de-sac was then entered sharply, and an Auvard speculum placed after tagging the midline posterior peritoneum. The left, then right, uterosacral ligament was cross-clamped, cut, and suture- ligated with 0 vicryl. These were tagged for later identification. The anterior cul-de-sac was then entered bluntly using a moist sponge and gentle pressure with the sand operator's finger. One additional pedicle was secured on each side, then the uterus, cervix, and tubes removed vaginally. The peritoneum was then closed with a purse-string suture of 0 vicryl, then the vaginal cuff was irrigated with sterile saline. The vaginal mucosa was then closed with serial figure of eight sutures of 0 vicryl. A sponge stick was placed, and attention returned to laparoscopy to visualize t he cuff for bleeding. The lower extremities were replaced into low lithotomy. Gas was instilled again, and the dissection site noted to have some bleeding at the right peritoneal edge just below the cuff. This was cauterized then hemostatic. Copious irrigation was performed. The ureters were visualized and peristalsed. At this point the procedure was deemed complete. The gas was allowed to escape, and the trocars removed. The incisions were then closed with 4-0 monocryl in a subcuticular fashion followed by Dermabond. The sponge stick was removed from the vagina. The patient was then replaced supine, awakened, extubated, and transferred to the PACU in stable condition. There were no complications. Sponge, lap, and needle count were correct x 3.
[2018-10-05] MEDS: fentaNYL 100 MCG/2 ML VIAL ONE ×3 (15:43→15:54)
[2018-10-05] MEDS ORDERED: HYDROmorphone PCA 20MG/100ML IV PRN (15:45)
[2018-10-05] MEDS ORDERED: diphenhydrAMINE INJ 50 MG/ML VIAL ONE (16:14)
[2018-10-05] MEDS: LACTATED RINGERS 1,000 ML IV SCH ×2 (16:48→20:58)
[2018-10-05] MEDS: KETOROLAC 30 MG/ML VIAL IVP SCH (17:28)
[2018-10-05] MEDS ORDERED: SODIUM CHLORIDE FLUSH 0.9% 10 ML SYRINGE ONE ×2 (20:02→22:00)
[2018-10-05] MEDS ORDERED: DOCUSATE SODIUM 100 MG CAPSULE PO SCH (21:00)
[2018-10-05] MEDS ORDERED: NICOTINE 21 MG PATCH TOP PRN (22:32)
[2018-10-06] MEDS ORDERED: SODIUM CHLORIDE FLUSH 0.9% 10 ML SYRINGE ONE ×3 (00:01→07:43)
[2018-10-06] MEDS: KETOROLAC 30 MG/ML VIAL IVP SCH ×2 (00:07→07:44)
[2018-10-06 06:14] LABS: BASOPHILS # (AUTO) 0.1 10^3/uL (0.0-0.1); EOSINOPHILS % (AUTO) 0.1 %; HGB - HEMOGLOBIN 10.9 g/dL (12.0-16.0); LYMPHOCYTES # (AUTO) 1.3 10^3/uL (1.5-3.5); LYMPHOCYTES % (AUTO) 9.3 %; MEAN CORPUSCULAR HEMOGLOBIN 30.8 pg (27.0-31.0); MEAN CORPUSCULAR HGB CONC 33.2 g/dL (32.0-36.0); MEAN CORPUSCULAR VOLUME 92.9 fL (81.0-99.0); MEAN PLATELET VOLUME 8.2 fL (7.9-10.8); MONOCYTES # (AUTO) 0.5 10^3/uL (0.0-1.0); MONOCYTES % (AUTO) 3.5 %; NEUTROPHILS # (AUTO) 11.6 10^3/uL (1.5-6.6); NEUTROPHILS % (AUTO) 86.1 %; PLT - PLATELET COUNT 253 10^3/uL (130-450); RED BLOOD COUNT 3.55 10^6/uL (4.20-5.40); RED CELL DISTRIBUTION WIDTH 13.4 % (12.0-15.0); WHITE BLOOD COUNT 13.5 x10^3/uL (4.8-10.8)
--- NOTE | 2018-10-06 06:31 | DISCHARGE SUMMARY ---
Discharge Summary Admit Date: 10/05/18 Discharge Date: 10/06/18 Discharging Provider: Dr. Yelena Kenyon Code Status: Attempt Resuscitation Condition at Discharge: Good Discharge Disposition: 01 Home, Self Care - DIAGNOSES Admission Diagnoses: Abnormal uterine bleeding, chronic pelvic pain Discharge Diagnoses with Status of Each Condition: KARINA now s/p LAVH with bilateral salpintectomies and lysis of adhesions - HPI History of Present Illness: Please see admission H&P. - CONSULTS | PROCEDURES Procedures: LAVH with bilateral salpintectomies and lysis of adhesions - HOSPITAL COURSE Hospital Course: After an uncomplicated surgery the patient was admitted to the PACU and then the givens in stable condition. Her pain in the recovery room required IV Dilaudid for stabilization, so a Dilaudid SHORE WORKING SUPERVISOR was utilized for overnight pain control, especially given her requirement for oral narcotics for approximately 1 week prior to surgery. Overnight events included discomfort from the Temple catheter, which required early removal at approximately 2200. Also, due to nicotine dependence, the patient requested off givens privileges to smoke. This request was initially denied due to hospital protocol; however, she was permitted per a dministration to later take to smoke breaks during the night. This prevented her from leaving "Against Medical Advice" during her stay. This morning, she reports her main concern has been frequent emptying of the bladder. She notes a good volume of urine, and her RN reports volumes of approximately 500 ml with each void. The patient does state that she feels she has been completely emptying. She reports passage of flatus, and she denies any nausea or vomiting. She feels ready to go home first thing this morning. She has been afebrile with normal stable vital signs during her hospital stay. - ALLERGIES Allergies/Adverse Reactions: Allergies Allergy/AdvReac Type Severity Reaction Status Date / Time sumatriptan [From Imitrex] Allergy Intermediate Edema Verified 10/04/18 09:19 sumatriptan succinate * Allergy Intermediate Edema Verified 10/04/18 09:19 [From Imitrex] morphine AdvReac Anxiety Verified 10/04/18 09:20 - MEDICATIONS Home Medications: Ambulatory Orders Medication Instructions Recorded Confirmed Oxycodone HCl/Acetaminophen 1 - 2 each PO Q6H PRN #14 tablet 09/26/18 10/05/18 [Percocet 5-325 mg Tablet] Cholestyramine [Questran] 4 gm PO BID 10/04/18 10/04/18 Docusate Calcium 240 mg PO BID PRN 10/05/18 10/05/18 Ibuprofen [Motrin] 800 mg PO Q8H PRN 10/05/18 10/05/18 Norgestimate-Ethinyl Estradiol 1 tab PO DAILY 10/05/18 10/05/18 [Mononessa 28 Tablet] Home Medications Other | Comments: See discharge handout. Patient has discharge meds at home already: Motrin 800 mg PO Q 8 hrs prn pain Percocet 5/325 1 tab PO Q 4 hrs prn pain WITH Oxycodone 5 mg 1 tab PO Q 4 hrs prn pain Surfak 240 mg PO BID prn constipation - PHYSICAL EXAM AT DISCHARGE General Appearance: positive: No acute distress, Other (Sleepy but easily arousable) Eyes Bilateral: positive: Normal inspection Respiratory: positive: No respiratory distress, Breath sounds nml Cardiovascular: positive: Regular rate & rhythm, No murmur Abdomen: positive: Nml bowel sounds, No distention, Tenderness (Appropriate for postop) Skin: positive: Other (Skin incisions: LSC x 3 well-approximated with Dermabond in place. No separation, discharge, or erythema noted.) Extremities: positive: Non-tender, Nml appearance Neurologic/Psychiatric: positive: Oriented x3, Mood/affect nml (Some irritability of mood secondary to pain and being hospital with inability to smoke.) - LABS Result Diagrams: 10/06/18 06:04 - QUALITY (Female Hip Fx Only) Was patient sent home on osteoporosis medication?: No - FOLLOW UP Follow Up: 19 OCT 2018 at [facility] as previously scheduled (see handout). - TIME SPENT Time Spent in Discharge (Minutes): 15
--- NOTE | 2018-10-06 06:37 | Discharge Plan ---
Discharge Plan Disposition: 01 Home, Self Care Condition: Good Diet: Regular Activity Restrictions: See handout Shower Restrictions: No Driving Restrictions: Yes (OK to drive once pain-free off narcotic pain meds) Weight Bearing: Full Weight No Smoking: If you smoke, Please STOP! Call for help. Follow-up with: PACO CADE [Primary Care Provider] -
[2018-10-06 07:57] VITALS: BP 111/61
== END 2018-10-06 08:10 | disposition home or self-care (01) | DRG 742 ==
LOC: MS2 11:31
PROVIDERS: ADMIT Obstetrics & Gynecology; ATTEND Obstetrics & Gynecology
PROC: 0UT7FZZ Resection of Bilateral Fallopian Tubes, Via Natural or Artificial Opening With Percutaneous Endoscopic Assistance (ICD-10-PCS; 2018-10-05)
PROC: 0UT9FZZ Resection of Uterus, Via Natural or Artificial Opening With Percutaneous Endoscopic Assistance (ICD-10-PCS; principal; 2018-10-05 12:30)
DX: N93.9 Abnormal uterine and vaginal bleeding, unspecified (principal); K50.90 Crohn's disease, unspecified, without complications; G89.29 Other chronic pain; R10.2 Pelvic and perineal pain; F17.200 Nicotine dependence, unspecified, uncomplicated; Z90.49 Acquired absence of other specified parts of digestive tract
CPT/HCPCS: 36415; 85025; A9270; J0131; J0690; J1170; J1200; J7120

== ENCOUNTER 2018-12-15 14:24 | Emergency (ER) | payer OTHER ==
--- NOTE | 2018-12-15 15:19 | XRAY Report ---
Reason: smashed fingers, 3rd and 4th fingers Procedure Date: 12/15/2018 Accession Number: [id number] / [id number] Procedure: XR - Finger(s) RT CPT Code: FULL RESULT: EXAM: RIGHT THIRD AND FOURTH DIGIT RADIOGRAPHY EXAM DATE: 12/15/2018 03:11 PM. CLINICAL HISTORY: Smashed fingers, 3rd and 4th fingers. COMPARISON: None. TECHNIQUE: 3 views in total. FINDINGS: Bones: Normal. No fracture or bone lesion. Joints: Normal. No subluxations. Soft Tissues: No radiopaque foreign body. No soft tissue swelling. IMPRESSION: No acute fracture or dislocation is detected. RADIA
--- NOTE | 2018-12-15 16:06 | ED Physician Documentation ---
PD HPI UPPER EXT INJURY - Stated complaint Stated Complaint: R HAND INJ - Chief complaint Chief Complaint: Trauma Ext - History obtained from History obtained from: Patient, Family - History of Present Illness Location: Right, Hand Type of injury: Blunt / blow Where injury occurred: Home Timing - onset: Today Timing - duration: Minutes Timing - details: Abrupt onset, Still present Improved by: Rest, Ice, Immobilization Worsened by: Moving, Palpating Associated symptoms: Swelling, Discolored. No: Weakness, Numbness Contributing factors: No: Anticoagulated Similar symptoms before: Has not had sx before Recently seen: Not recently seen - Additonal information Additional information: 38-year-old female got her fingers caught in the sash of a window as it came down and she has severe pain to the fingertips on the right hand to the #3 and 4 fingers. She is having pain this radiating all the way up into her forearm associated with this. Review of Systems Constitutional: denies: Fever Eyes: denies: Decreased vision Ears: denies: Ear pain Nose: denies: Congestion Respiratory: denies: Dyspnea GI: denies: Abdominal Pain, Nausea, Vomiting PD PAST MEDICAL HISTORY - Past Medical History Past Medical History: Yes Cardiovascular: None Respiratory: None Neuro: Migraines Endocrine/Autoimmune: Systemic lupus erythematosus GI: Crohn's disease, Other TRUER PINION AND WHEEL: None : Kidney stones HEENT: None Psych: None Musculoskeletal: Osteoarthritis Derm: None - Past Surgical History Past Surgical History: Yes General: Cholecystectomy Ortho: ACL reconstruction /TRUER PINION AND WHEEL: Tubal ligation, Hysterectomy - Present Medications Home Medications: Ambulatory Orders Medication Instructions Recorded Confirmed Oxycodone HCl/Acetaminophen 1 - 2 each PO Q6H PRN #14 tablet 09/26/18 10/05/18 [Percocet 5-325 mg Tablet] Cholestyramine [Questran] 4 gm PO BID 10/04/18 10/04/18 Docusate Calcium 240 mg PO BID PRN 10/05/18 10/05/18 Ibuprofen [Motrin] 800 mg PO Q8H PRN 10/05/18 10/05/18 Norgestimate-Ethinyl Estradiol 1 tab PO DAILY 10/05/18 10/05/18 [Mononessa 28 Tablet] Oxycodone HCl/Acetaminophen 1 - 2 each PO Q6H PRN #14 tablet 12/15/18 [Percocet 5-325 mg Tablet] - Allergies Allergies/Adverse Reactions: Allergies Allergy/AdvReac Type Severity Reaction Status Date / Time sumatriptan [From Imitrex] Allergy Intermediate Edema Verified 12/15/18 14:57 sumatriptan succinate * Allergy Intermediate Edema Verified 12/15/18 14:57 [From Imitrex] morphine AdvReac Anxiety Verified 12/15/18 14:57 - Social History Does the pt smoke?: Yes Smoking Status: Current every day smoker Does the pt drink ETOH?: No Does the pt have substance abuse?: No - Immunizations Immunizations are current?: Yes Immunizations: TDAP >10years/unknown - POLST Patient has POLST: No PD ED PE NORMAL - Vitals Vital signs reviewed: Yes (hypertensive ) - General General: Alert and oriented X 3, Well developed/nourished, Other (appears to be in pain ) - HEENT HEENT: Atraumatic, PERRL, EOMI - Respiratory Respiratory: No respiratory distress - Derm Derm: Normal color, Warm and dry, No rash - Extremities Extremities: Other (There is swelling and tenderness to the finger tips on on right hand #3 and #4. There are small sub-ungal hematomas to both finger tips.) - Neuro Neuro: Alert and oriented X 3, fruit loader 2-12 intact, No motor deficit, No sensory deficit, Normal speech Eye Opening: Spontaneous Motor: Obeys Commands Verbal: Oriented GCS Score: 15 - Psych Psych: Normal mood, Normal affect Results - Vitals Vitals: Vital Signs - 24 hr 12/15/18 14:55 Temperature 36.7 C Heart Rate 81 Respiratory 18 Rate Blood Pressure 132/100 H O2 Saturation 99 Oxygen O2 Source Room air - Rads (name of study) hadn R Radiology: Prelim report reviewed (Impression: No acute fracture or dislocation is detected.), EMP read indepedently, See rad report Procedures - Splint (location) right hand Splint applied by: Tech Type of splint: Fiberglass, Volar cock up Other: Patient tolerated well, No complications, Neurovascular intact, Good alignment PD MEDICAL DECISION MAKING - ED course Complexity details: reviewed results, re-evaluated patient, considered differential, d/w patient, d/w family ED course: 38-year-old female with a crush injury to the fingers of the left hand distally has no evidence of fracture on x-ray she is placed into a splint for immobilization and comfort and given Percocet. Departure - Departure Disposition: 01 Home, Self Care Clinical Impression: Crushing injury Sprain of finger, right Qualifiers: Encounter type: initial encounter Finger: middle finger Sprain of finger site: other site Qualified Code(s): S63.692A - Other sprain of right middle finger, initial encounter Condition: Stable Instructions: ED Sprain Finger Follow-Up: PACO CADE [Primary Care Provider] - Prescriptions: Oxycodone HCl/Acetaminophen [Percocet 5-325 mg Tablet] 1 - 2 each PO Q6H PRN #14 tablet PRN Reason: pain
[2018-12-15] MEDS ORDERED: oxyCODONE 5 MG TABLET PO STA (16:18)
[2018-12-15 16:43] VITALS: BP 119/60
== END 2018-12-15 16:43 | disposition home or self-care (01) ==
LOC: ED 14:24
DX: S60.131A Contusion of right middle finger with damage to nail, initial encounter (principal); S60.141A Contusion of right ring finger with damage to nail, initial encounter; S63.612A Unspecified sprain of right middle finger, initial encounter; S63.614A Unspecified sprain of right ring finger, initial encounter; W20.8XXA Other cause of strike by thrown, projected or falling object, initial encounter; Y92.009 Unspecified place in unspecified non-institutional (private) residence as the place of occurrence of the external cause; F17.200 Nicotine dependence, unspecified, uncomplicated
CPT/HCPCS: 29125; 73140; 99283; A9270

== ENCOUNTER 2019-02-23 19:38 | Emergency (ER) | payer OTHER ==
[2019-02-23 19:46] VITALS: BP 124/80
--- NOTE | 2019-02-23 22:11 | ED Physician Documentation ---
PD HPI LOWER EXT INJURY - Stated complaint Stated Complaint: L LEG/HIP INJ - Chief complaint Chief Complaint: Trauma Ext PD PAST MEDICAL HISTORY - Past Medical History Cardiovascular: None Respiratory: None Neuro: Migraines Endocrine/Autoimmune: Systemic lupus erythematosus GI: Crohn's disease, Other SERVICE DESK SPECIALIST: None : Kidney stones HEENT: None Psych: None Musculoskeletal: Osteoarthritis Derm: None - Past Surgical History Past Surgical History: Yes General: Cholecystectomy Ortho: ACL reconstruction /SERVICE DESK SPECIALIST: Tubal ligation, Hysterectomy - Allergies Allergies/Adverse Reactions: Allergies Allergy/AdvReac Type Severity Reaction Status Date / Time sumatriptan [From Imitrex] Allergy Intermediate Edema Verified 02/23/19 19:45 sumatriptan succinate * Allergy Intermediate Edema Verified 02/23/19 19:45 [From Imitrex] morphine AdvReac Anxiety Verified 02/23/19 19:45 - Social History Does the pt smoke?: Yes Smoking Status: Current every day smoker Does the pt drink ETOH?: No Does the pt have substance abuse?: No - Immunizations Immunizations are current?: Yes Immunizations: TDAP >10years/unknown - POLST Patient has POLST: No Results - Vitals Vitals: Vital Signs - 24 hr 02/23/19 19:39 Temperature 36.9 C Heart Rate 103 H Respiratory 16 Rate Blood Pressure 124/80 O2 Saturation 99 Oxygen O2 Source Room air
== END 2019-02-23 22:43 | disposition left against medical advice (07) ==
LOC: ED 19:38
DX: Z53.21 Procedure and treatment not carried out due to patient leaving prior to being seen by health care provider (principal)